=== PATIENT | female | born 1990 | race Caucasian/White ===

== ENCOUNTER 2024-07-21 02:52 | Inpatient (IN) | payer OTHER, SELFPAY ==
[2024-07-21 03:11] VITALS: BP 144/97; BMI 27.3
[2024-07-21] MEDS: ANCEF 10 IV (03:45)
[2024-07-21] MEDS: TYLENOL 1000 MG PO (03:45)
[2024-07-21] MEDS: BICITRA 30 ML PO (03:45)
[2024-07-21 04:00] LABS: Hemoglobin 12.2 g/dL (12.0-16.0); Mean Corp Hgb Conc. 34.9 g/dL (33.0-37.0); Mean Corpuscular Hgb 32.4 pg (27.0-31.0); Mean Corpuscular Volume 93.1 fL (81.0-99.0); Mean Platelet Volume 10.7 fL (7.4-10.4); Platelet Count 165 10^3/uL (130-400); Red Blood Cell Count 3.76 10^6/uL (4.20-5.40); White Blood Cell Count 11.5 10^3/uL (4.8-10.8)
[2024-07-21] MEDS: ZOLOFT 100 MG PO (07:44)
[2024-07-21] MEDS: PRENATAL PLUS 1 TABLET PO (07:44)
[2024-07-21] MEDS: TORADOL 15 MG IV ×3 (10:44→22:52)
[2024-07-22 04:17] LABS: Hematocrit 26.7 % (37.0-47.0); Mean Corp Hgb Conc. 33.7 g/dL (33.0-37.0); Mean Platelet Volume 10.3 fL (7.4-10.4); Platelet Count 138 10^3/uL (130-400); Red Blood Cell Count 2.81 10^6/uL (4.20-5.40); Red Cell Dist. Width 12.8 % (11.5-14.5); White Blood Cell Count 9.3 10^3/uL (4.8-10.8)
[2024-07-22] MEDS: TORADOL 15 MG IV (04:31)
[2024-07-22] MEDS: FEOSOL 325 MG PO (09:17)
[2024-07-22] MEDS: SENOKOT-S 1 TABLET PO (09:17)
[2024-07-22] MEDS: PRENATAL PLUS 1 TABLET PO (09:17)
[2024-07-22] MEDS: ZOLOFT 100 MG PO (09:17)
--- NOTE | 2024-07-22 09:33 | W.PN.ANS.POP ---
Anesthesia Post Operative
- Anesthesia Post Op Note
Vital Signs Stable-See Nursing Note: Yes
Airway Patent: Yes
Adequate Pain Control: Yes
Change in Mental Status: No
Current Postoperative Nausea & Vomiting: No
Anesthesia Complications: No
General Anesthetic Recall: No
Unplanned Admission: No
Post Op Hydration Adequate: Yes
[2024-07-22] MEDS: MOTRIN 600 MG PO ×2 (10:52→20:49)
[2024-07-22 13:20] LABS: Syphilis/T. pallidum Ab Reflex Negative (Negative)
[2024-07-23] MEDS: MOTRIN 600 MG PO (05:12)
[2024-07-23] MEDS: PRENATAL PLUS 1 TABLET PO (08:27)
[2024-07-23] MEDS: SENOKOT-S 1 TABLET PO (08:27)
[2024-07-23] MEDS: TYLENOL 650 MG PO (08:27)
[2024-07-23] MEDS: FEOSOL 325 MG PO (08:28)
[2024-07-23] MEDS: ZOLOFT 100 MG PO (08:28)
--- NOTE | 2024-07-23 13:01 | W.DS.TRANS ---
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
-
Discharge Instructions:
Discharge Diagnosis/Procedures Section
Instructions:
Stand-Alone Forms: LDRP Delivery
Changes to Home Medications: No
Discharge Medications:
DC Medications w/original date entered in [facility]
vitamin-ferrous fumarate 28 mg iron-folic acid 800 mcg tablet 1 ea PO DAILY 05/11/19
sertraline 100 mg tablet 100 mg PO DAILY 07/21/24
acetaminophen 325 mg tablet 650 mg (2 x 325 mg) PO Q4HPRN PRN mild pain #0 tabs 07/23/24
ferrous sulfate 325 mg (65 mg iron) tablet (FeroSul) 325 mg PO DAILY #0 tabs 07/23/24
ibuprofen 600 mg tablet 600 mg PO Q6HPRN PRN cramps #45 tabs 07/23/24
sennosides 8.6 mg-docusate sodium 50 mg tablet 1 tab PO DAILYPRN PRN constipation #0 tabs 07/23/24
Home Medication Changes
Pending Results: No
== END 2024-07-23 13:23 | disposition home or self-care (01) | DRG 788 ==
LOC: LDRP 02:52
PROVIDERS: ADMITTING PHYSICIAN Obstetrics & Gynecology
PROC: 10D00Z1 Extraction of Products of Conception, Low, Open Approach (ICD-10-PCS; 2024-07-21)
DX: O34.211 Maternal care for low transverse scar from previous cesarean delivery (principal); O77.0 Labor and delivery complicated by meconium in amniotic fluid; O99.824 Streptococcus B carrier state complicating childbirth; Z3A.38 38 weeks gestation of pregnancy; Z37.0 Single live birth
CPT/HCPCS: 88307; 36415; 85027; 86780; 86850; 86900; 86901